=== PATIENT | female | born 1985 ===

== ENCOUNTER 2019-03-02 12:34 | Emergency (ER) | payer OTHER ==
--- NOTE | 2019-03-02 12:45 | UC ---
Skin Complaint HPI - HPI Summary HPI Summary: Patient is a 33yo female presenting with a tick bite on her left ribs that she noticed right before she came in here. States she felt a mild pain at the site and that is when she noticed the tick and immediately pulled it out. She is unaware of how long the tick had been there. Notes some redness where the tick was attached. Denies pain currently. Denies drainage. Denies fever, chills, n/v/ d. - History of Current Complaint Stated Complaint: TICK Hx Obtained From: Patient - Allergy/Home Medications Allergies/Adverse Reactions: Allergies Allergy/AdvReac Type Severity Reaction Status Date / Time No Known Allergies Allergy Verified 03/02/19 12:50 Home Medications: Home Medications Sertraline* [Zoloft*] 1 tab PO DAILY 03/02/19 [History Confirmed 03/02/19] PMH/Surg Hx/FS Hx/Imm Hx Previously Healthy: Yes - Family History Known Family History: Positive: Non-Contributory Review of Systems All Other Systems Reviewed And Are Negative: No Constitutional: Positive: Negative. Negative: Fever, Chills Skin: Positive: Other - tick bite to chest Respiratory: Positive: Negative Cardiovascular: Positive: Negative Gastrointestinal: Positive: Negative. Negative: Vomiting, Nausea Musculoskeletal: Positive: Negative Neurological: Positive: Negative Physical Exam Triage Information Reviewed: Yes Appearance: Well-Appearing, No Pain Distress, Well-Nourished Vital Signs: Vital Signs (72 hours) 03/02/19 12:46 Temperature 98.6 F Pulse Rate 77 Respiratory 18 Rate Blood Pressure 111/83 (mmHg) O2 Sat by Pulse 99 Oximetry Vital Signs Reviewed: Yes Eyes: Positive: Conjunctiva Clear ENT: Positive: Hearing grossly normal Neck: Positive: Supple Respiratory: Positive: Chest non-tender, No respiratory distress Neurological: Positive: Alert Psychological: Positive: Age Appropriate Behavior Skin: Positive: Other - 1cm area of erythema noted over left lateral ribs where tick was attached. no drainage noted. Course/Dx - Course Course Of Treatment: Discussed with patient the prophylactic treatment of lyme disease with doxy. She received 200mg of doxy while here. Educated patient on s/s of Lyme disease and instructed her to follow up with [facility] or Physician Referral if needed. Patient voiced understanding and agreed to the treatment plan. - Diagnoses Provider Diagnosis: Tick bite of chest wall Discharge ED - Sign-Out/Discharge Documenting (check all that apply): Patient Departure All imaging exams completed and their final reports reviewed: No Studies - Discharge Plan Condition: Stable Disposition: HOME Patient Education Materials: Tick Bite (ED) Referrals: [facility] [place] [facility] REFERRAL [Outside] - If Needed [facility] [Outside] - If Needed Additional Instructions: As discussed, you received a one-time dose of Doxycycline to prevent Lyme Disease. No further treatment is required. Follow up with the [facility] or the Physician Referral if you experience weakness, severe headache, or a rash where you were the tick bit you. Go to the emergency room if you experience increasing redness, warmth, or drainage to the area. - Billing Disposition and Condition Condition: STABLE Disposition: Home
[2019-03-02] MEDS ORDERED: DOXYcycline CAP(*) 100 MG PO ONE (12:56)
== END 2019-03-02 13:05 | disposition home or self-care (01) ==
LOC: UCEAST 12:34
DX: S20.362A Insect bite (nonvenomous) of left front wall of thorax, initial encounter (principal); W57.XXXA Bitten or stung by nonvenomous insect and other nonvenomous arthropods, initial encounter; Y92.9 Unspecified place or not applicable
CPT/HCPCS: 99202; A9270-GY; G0463